=== PATIENT | female | born 1995 | race Caucasian/White ===

== ENCOUNTER 2017-06-21 14:50 | Emergency (ER) | payer SELFPAY ==
[~2017-06-21] VITALS: Ht 170.2 cm; Wt 63.1 kg
[2017-06-21 15:03] VITALS: BP 100/52; PULSE 87; RESP 16; TEMP 99; O2SAT 100
[2017-06-21 16:20] LABS: BLOOD, URINE LARGE (NEG); GLUCOSE,URINE NEG (NEG); KETONE, URINE NEG (NEG); NITRITE,URINE POS (NEG); PH, URINE 6.5 (5.0-8.5)
[2017-06-21 16:27] LABS: METHOD OF COLLECTION CLEAN CATCH; RBC, URINE 100-200 /hpf (0-3); URINE COLOR YELLOW (YELLW/STRAW); WBC, URINE INNUM /hpf (0-5)
[2017-06-21 16:28] LABS: BACTERIA, URINE MOD /hpf; COMMENT (UR) CULTURE INDICATED; CULTURE IF INDICATED CULTURE INDICATED; SQUAMOUS EPITHELIAL CELL URINE > 8 /hpf (0-5)
[2017-06-21] MEDS ORDERED: MACR100C2 PO (16:42)
--- NOTE | 2017-06-21 16:42 | PD ---
HPI Chief Complaint: back pain Time Seen by Provider: 16:02 Travel History International Travel<30 days: No Contact w/Intl Traveler<30days: No Traveled to known affect area: No History of Present Illness HPI 22-year-old female who is having low back pain and symptoms of a urinary tract infection over the past couple of days. She tried Azo per staff and that helped but then her symptoms came back. She denies any fever, vomiting, upper back pain or other concurrent complaints. This feels like prior urinary tract infection. PFSH Past Medical History Medical History: Denies Significant Hx ?: Unknown LMP: 06/16/17 Past Surgical History Surgical History: No Previous Surgery Social History Alcohol Use: Yes (occaisional) Tobacco Use: No Substance Use: No Allergies-Medications (Allergen,Severity, Reaction): Coded Allergies: Sulfa (Sulfonamide Antibiotics) (Verified Allergy, Unknown, 06/21/17) Reported Meds & Prescriptions Reported Meds & Active Scripts Active Macrobid (Nitrofurantoin Monoh/Nitrofur Macro) 100 Mg Cap 100 Mg PO BID 7 Days Review of Systems Except as stated in HPI: all other systems reviewed are Neg Physical Exam Narrative GENERAL: Well-nourished, well-developed patient. Well-appearing SKIN: Warm and dry. HEAD: Normocephalic and atraumatic. EYES: No injection or drainage. ENT: No nasal drainage noted. NECK: Supple, trachea midline. CARDIOVASCULAR: Regular rate and rhythm RESPIRATORY: No increased effort. No accessory muscle use. GASTROINTESTINAL: Abdomen nondistended. EXTREMITIES: No edema. NEUROLOGICAL: Awake and alert. Motor and sensory grossly within normal limits. Normal speech. Data Data Last Documented VS Vital Signs Date Time Temp Pulse Resp B/P (MAP) Pulse Ox O2 Delivery O2 Flow Rate FiO2 06/21/17 15:03 99.0 87 16 100/52 (68) 100 Orders Orders Urinalysis - C+S If Indicated (06/21/17 16:06) Ed Urine Pregnancytest Poc (06/21/17 16:06) Urine Culture (06/21/17 16:09) Labs Laboratory Tests Test 06/21/17 16:09 Urine Collection Type CLEAN CATCH Urine Color YELLOW Urine Turbidity SLIGHT Urine pH 6.5 Urine Specific [place] 1.016 Urine Protein 30 mg/dL Urine Glucose (UA) NEG mg/dL Urine Ketones NEG mg/dL Urine Occult Blood LARGE Urine Nitrite POS Urine Bilirubin NEG Urine Leukocyte Esterase LARGE Urine RBC 100-200 /hpf Urine WBC INNUM /hpf Urine WBC Clumps MOD Urine Squamous Epithelial Cells > 8 /hpf Urine Bacteria MOD /hpf Microscopic Urinalysis Comment CULTURE INDICATED Urine Collection Time 16:09 [facility] Medical Decision Making Medical Screen Exam Complete: Yes Emergency Medical Condition: Yes Medical Record Reviewed: Yes (past history confirmed) Differential Diagnosis Stone, UTI, cyst, Narrative Course Will check urinalysis and beta and reevaluate Beta is negative, UA with UTI, all questions answered. Patient knows that follow up is incumbent on them and to return to the emergency room immediately if new or worsening symptoms develop. Patient given strict return precautions, vitals reviewed and are normal, agrees to further workup as an outpatient. Diagnosis Primary Impression: UTI (urinary tract infection) Qualified Codes: N39.0 - Urinary tract infection, site not specified Patient Instructions: General Instructions Additional Instructions: return as needed, follow with primary this week, tylenol as needed Med/Other Pt SpecificInfo: Prescription(s) given Scripts Nitrofurantoin Monohydrate Macrocrystals (Macrobid) 100 Mg Cap 100 MG PO BID for Infection for 7 Days, #14 CAP 0 Refills Prov: Kami Saldana MD 06/21/17 Disposition: 01 DISCHARGE HOME Condition: Stable Kami Saldana MD Jun 21, 2017 16:42
[2017-06-21 16:53] VITALS: BP 105/55; PULSE 80; RESP 16; O2SAT 98
== END 2017-06-21 16:54 | disposition home or self-care (01) ==
LOC: PHED 14:50
DX: N39.0 Urinary tract infection, site not specified (principal); B96.20 Unspecified Escherichia coli [E. coli] as the cause of diseases classified elsewhere; M54.5 Low back pain
CPT/HCPCS: 81001; 84703; 87077; 87086; 87186; 99283